=== PATIENT | male | born 1980 | race Caucasian/White ===

== ENCOUNTER 2020-09-03 06:16 | Day surgery (SDC) | payer OTHER ==
[2020-09-01 13:26] LABS: PLATELET COUNT 212 x10^3mcL (130-400); RED CELL DISTRIBUTION WIDTH 12.2 % (11.5-14.5)
[2020-09-01 13:38] LABS: ALBUMIN 3.7 g/dL (3.4-5.0); ALKALINE PHOSPHATASE 70 U/L (46-116); ALT/SGPT 25 U/L (16-63); AST/SGOT 26 U/L (15-37); BILIRUBIN TOTAL 1.27 mg/dL (0.20-1.00); CALCIUM 9.1 mg/dL (8.5-10.1); CARBON DIOXIDE 33.3 mmol/L (21-32); CHLORIDE SERUM 104 mmol/L (98-107); CREATININE SERUM 1.3 mg/dL (0.7-1.3); GFR1 > 60 mL/min; POTASSIUM SERUM 3.6 mmol/L (3.5-5.1); SODIUM SERUM 144 mmol/L (136-145); TOTAL PROTEIN, SERUM 7.9 g/dL (6.4-8.2)
[2020-09-01 13:40] LABS: BASOPHIL % 2.4 % (0-2)
[2020-09-01 13:43] LABS: GLUCOSE SERUM 59 mg/dL (74-106)
--- NOTE | 2020-09-01 13:45 | NUR ---
PATIENT WAS CALLED TO CHECK IF ANY S/S OF HYPOGLYCEMIA DUE TO LOW BS 59. PATIENT DENIED ANY S/S AND WAS INSTRUCTED TO EAT SOME SWEET CANDY TO INCREASE BS. PATIENT VERBALIZED UNDERSTANDING.
[2020-09-01 13:57] LABS: UA SPECIFIC GRAVITY 1.025 (1.005-1.035); microscopic required? YES; urine erythrocyte NEGATIVE (NEGATIVE)
--- NOTE | 2020-09-01 14:55 | NUR ---
LAB RESULT AND EKG COPY WERE FAXED TO DR. HENRIQUEZ'S OFFICE AND SENT TO OR FOR ANESTHESIOLOGIST TO REVIEW. DR. MCGARRY, ANESTHESIOLOGIST, RECOMMENDED TO RECHECK GLUCOSE UPON ADMISSION DAY.
[~2020-09-03] VITALS: Ht 190.5 cm; Wt 95.2 kg
[2020-09-03 06:49] VITALS: BP 127/88
[2020-09-03 12:05] VITALS: BP 135/81
== END 2020-09-03 12:00 | disposition home or self-care (01) ==
LOC: DS 06:16 → OR 07:30 → DS 12:00
PROVIDERS: ATTEND Urology
DX: N35.919 Unspecified urethral stricture, male, unspecified site (principal); J45.909 Unspecified asthma, uncomplicated; C95.90 Leukemia, unspecified not having achieved remission; E78.5 Hyperlipidemia, unspecified; Z79.899 Other long term (current) drug therapy
CPT/HCPCS: 82962; C1769; J0696; J3010; J3490